=== PATIENT | male | born 1985 | race American Indian/Alaskan Native ===

== ENCOUNTER 2019-01-11 16:27 | Emergency (ER) | payer MEDICAID ==
[~2019-01-11] VITALS: Ht 177.8 cm; Wt 90.4 kg
[2019-01-11 16:41] VITALS: BP 112/71
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
--- NOTE | 2019-01-11 17:05 | NUR ---
kyler brito at bedside for evaluations/assessments.helen mabry.awaits reevaluations.
--- NOTE | 2019-01-11 18:51 | NUR ---
pt tolerated procedures with no incidents.upon er md reevaluations pt d/c'ed with rx,instructions and to follow up with pmd/clinic for checkup further evaluations.return to nearest appropriate medical facility if conditions owrsen/emergencies.helen mabry.ambulates on his own and states he understands instructions and will comply.
[2019-01-11 18:53] VITALS: BP 107/58
== END 2019-01-11 18:51 | disposition home or self-care (01) ==
LOC: MED 16:27
DX: M79.642 Pain in left hand (principal); Z85.47 Personal history of malignant neoplasm of testis; Z88.1 Allergy status to other antibiotic agents
CPT/HCPCS: 73130; 99283; Q0092

== ENCOUNTER 2019-05-23 15:16 | Emergency (ER) | payer MEDICAID, OTHER ==
[~2019-05-23] VITALS: Ht 177.8 cm; Wt 86.2 kg
[2019-05-23 15:19] VITALS: BP 110/72
[2019-05-23] MEDS ORDERED: IBUPROFEN 400 MG TAB PO ONE (15:50)
--- NOTE | 2019-05-23 16:02 | NUR ---
PT RETURNED FROM XRAY
--- NOTE | 2019-05-23 16:02 | NUR ---
DR MCCORMACK AT BEDSIDE FOR PT EVALUATION
--- NOTE | 2019-05-23 16:02 | NUR ---
BIB SELF. AAO X4 C/O LOWER BACK PAIN X YESTERDAY. DENIES TRAUMA/INJURY. PT AMBULATED WITH STEADY GAIT. ER TO EVALUATE PT.
[2019-05-23 17:10] VITALS: BP 114/76
--- NOTE | 2019-05-23 17:10 | NUR ---
Patient discharged with v/s stable. Written and verbal after care instructions given and explained. Patient alert, oriented and verbalized understanding of instructions. Carried with steady gait. All questions addressed prior to discharge. ID band removed. Patient advised to follow up with PMD. Rx of NAPROSYN 500 MG, NORCO 5MG-325 MG given. Patient educated on indication of medication including possible reaction and side effects. Opportunity to ask questions provided and answered.
== END 2019-05-23 17:10 | disposition home or self-care (01) ==
LOC: MED 15:16
DX: S29.012A Strain of muscle and tendon of back wall of thorax, initial encounter (principal); F12.10 Cannabis abuse, uncomplicated; Z88.1 Allergy status to other antibiotic agents; Z85.47 Personal history of malignant neoplasm of testis; Z90.89 Acquired absence of other organs; X50.9XXA Other and unspecified overexertion or strenuous movements or postures, initial encounter; Y93.89 Activity, other specified; Y92.89 Other specified places as the place of occurrence of the external cause; Y99.8 Other external cause status
CPT/HCPCS: 72072; 99283

== ENCOUNTER 2021-11-03 17:46 | Emergency (ER) | payer OTHER ==
[~2021-11-03] VITALS: Ht 175.3 cm; Wt 93.1 kg
[2021-11-03 17:53] VITALS: BP 141/85
--- NOTE | 2021-11-03 18:11 | NUR ---
[facility]: LEFT EYE 20/200, RIGHT EYE 20/50 , BOTH EYES 20/50
[2021-11-03] MEDS ORDERED: TETRACAINE HCL/PF 0.5% OPTH 4 ML BTL ONE (18:43)
[2021-11-03] MEDS ORDERED: TETRACAINE HCL/PF 0.5% OPTH 4 ML BTL OP ONE (18:45)
[2021-11-03] MEDS ORDERED: FLUORESCEIN OPTH STRIP 1 MG OP ONE (18:45)
[2021-11-03] MEDS ORDERED: ACET-8386 PO (19:04)
[2021-11-03] MEDS ORDERED: TOBR5SOL17 LEFT EYE (19:04)
[2021-11-03 19:31] VITALS: BP 141/85
--- NOTE | 2021-11-03 19:31 | NUR ---
Patient discharged with v/s stable. Written and verbal after care instructions given and explained. Patient alert, oriented and verbalized understanding of instructions. Ambulatory with steady gait. All questions addressed prior to discharge. ID band removed. Patient advised to follow up with PMD. Rx of NORCO AND TOBRAMYCIN given. Patient educated on indication of medication including possible reaction and side effects. Opportunity to ask questions provided and answered.
== END 2021-11-03 19:31 | disposition home or self-care (01) ==
LOC: MED 17:46
DX: S05.02XA Injury of conjunctiva and corneal abrasion without foreign body, left eye, initial encounter (principal); Z85.47 Personal history of malignant neoplasm of testis; Z88.1 Allergy status to other antibiotic agents; Z79.899 Other long term (current) drug therapy; X58.XXXA Exposure to other specified factors, initial encounter; Y93.89 Activity, other specified; Y92.89 Other specified places as the place of occurrence of the external cause; Y99.8 Other external cause status
CPT/HCPCS: 99283

== ENCOUNTER 2022-04-19 23:39 | Emergency (ER) | payer OTHER ==
[~2022-04-19] VITALS: Ht 177.8 cm; Wt 136.1 kg
[~2022-04-19 23:39] MED LIST: ACET-8386 PO; TOBR5SOL17 LEFT EYE
[2022-04-20 00:18] VITALS: BP 138/74
--- NOTE | 2022-04-20 00:25 | NUR ---
PT AMBULATED TO BED #8
--- NOTE | 2022-04-20 00:33 | NUR ---
Dr. Yadav examining patient.
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
--- NOTE | 2022-04-20 01:42 | NUR ---
PT TAKEN TO CT
--- NOTE | 2022-04-20 01:49 | NUR ---
PT RETURN FROM CT
[2022-04-20] MEDS ORDERED: IBUPROFEN 800 MG TAB ONE (01:57)
[2022-04-20] MEDS: IBUPROFEN 800 MG TAB PO ONE (01:59)
--- NOTE | 2022-04-20 02:55 | NUR ---
ASKED DR FOR STRONGER MED. PT STATES PAIN 07/26 . PT ASKED WHY CT TAKES SO LONG. MT TO ALL RAD FOR UPDATE
[2022-04-20] MEDS: ONDANSETRON 4 MG ODT PO ONE (03:09)
[2022-04-20] MEDS: MORPHINE SULFATE 4 MG/ML SYR IM ONE (03:14)
--- NOTE | 2022-04-20 05:30 | NUR ---
PT PAIN LOWERED. PT SLEEPING WITH EYES CLOSED . X2 SIDE RAILS UP FOR SAFETY
[2022-04-20] MEDS ORDERED: IBUP-2218 PO (06:06)
[2022-04-20 06:10] VITALS: BP 115/62
--- NOTE | 2022-04-20 06:10 | NUR ---
Patient discharged with v/s stable. Written and verbal after care instructions given and explained. Patient alert, oriented and verbalized understanding of instructions. Ambulatory with steady gait. All questions addressed prior to discharge. ID band removed. Patient advised to follow up with PMD. Rx of MOTRIN given. Opportunity to ask questions provided and answered.
--- NOTE | 2022-04-20 06:51 | NUR ---
The patient's care was reviewed and supervised by Esther Moss RN.
--- NOTE | 2022-04-20 06:53 | NUR ---
Note jorge in EDM - 04/20/22 at 0654 by SYLVESTER Patient discharged with v/s stable. Written and verbal after care instructions given and explained. Patient alert, oriented and verbalized understanding of instructions. Ambulatory with steady gait. All questions addressed prior to discharge. ID band removed. Patient advised to follow up with PMD. Rx of MOTRIN given. Opportunity to ask questions provided and answered.
== END 2022-04-20 06:10 | disposition home or self-care (01) ==
LOC: MED 23:39
DX: R10.84 Generalized abdominal pain (principal); R07.9 Chest pain, unspecified; M54.50 Low back pain, unspecified; Z85.47 Personal history of malignant neoplasm of testis; Z79.891 Long term (current) use of opiate analgesic; Z79.2 Long term (current) use of antibiotics; Z88.1 Allergy status to other antibiotic agents
CPT/HCPCS: 71250; 74176; 96372; 99284; J2270; Q0162